=== PATIENT | male | born 1975 | race Caucasian/White ===

== ENCOUNTER → 2017-10-09 | Outpatient (CLI) | payer BC ==
[~2017-10-09] MED LIST: CYCL10 PO; HYDACE5 PO
== END | disposition home or self-care (01) ==
LOC: LAB 08:30 → LAB SHORT 08:30
DX: L28.2 Other prurigo (principal)
CPT/HCPCS: 87070; 87147; 87205

== ENCOUNTER → 2019-02-11 | Outpatient (CLI) | payer BC ==
[2019-02-13 04:07] LABS: CHLAMYDIA TRACHOMATIS, NAA Negative (Negative); NEISSERIA GONORRHOEAE, NAA Negative (Negative)
== END | disposition home or self-care (01) ==
LOC: LAB SHORT 16:45 → LAB 16:45
PROVIDERS: Emergency Medicine
DX: N34.1 Nonspecific urethritis (principal)
CPT/HCPCS: 87491; 87591

== ENCOUNTER 2020-07-06 21:28 | Emergency (ER) | payer BC ==
[~2020-07-06] VITALS: Ht 180.3 cm; Wt 90.7 kg
[2020-07-06] MEDS ORDERED: CEFP200 PO ×2 (22:49→23:14)
== END 2020-07-06 23:17 | disposition home or self-care (01) ==
LOC: ER 21:28
DX: S61.215A Laceration without foreign body of left ring finger without damage to nail, initial encounter (principal); Z79.899 Other long term (current) drug therapy; W31.2XXA Contact with powered woodworking and forming machines, initial encounter
CPT/HCPCS: 12001; 73140; 99283-25; A9270-GY